=== PATIENT | male | born 1990 | race Caucasian/White ===

== ENCOUNTER → 2024-03-31 10:12 | Outpatient (REF) | payer BC, SELFPAY | LOC: RAD 10:12 | PROVIDERS: ATTENDING PHYSICIAN Internal Medicine Cardiovascular Disease; FAMILY PHYSICIAN Family Medicine | DX: I25.41 Coronary artery aneurysm (principal); Z79.01 Long term (current) use of anticoagulants | CPT/HCPCS: 75574; Q9967 ==